=== PATIENT | male | born 1950 | race Caucasian/White ===

== ENCOUNTER 2018-09-05 08:07 | Emergency (ER) | payer OTHER, MEDICARE | END 2018-09-05 10:36 | disposition home or self-care (01) | DX: [UNRECOGNIZED DIAGNOSIS CODE] ==

== ENCOUNTER 2018-09-23 04:39 | Emergency (ER) | payer OTHER ==
[2018-09-23] MEDS ORDERED: KETOROLAC 15 MG/1 ML SDV ONE (04:51)
[2018-09-23] MEDS ORDERED: NS 1,000 ML IV ONE (04:52)
[2018-09-23] MEDS ORDERED: KETOROLAC 15 MG/1 ML SDV IVP ONE (04:52)
--- NOTE | 2018-09-23 04:54 | EDPHY ---
H & P Stated Complaint: right flank pain, lithotrypssy 09/21/18 Time Seen by Provider: 09/23/18 04:46 HPI/ROS: Chief Complaint: Right flank pain HPI: 68-year-old male presenting with right flank pain which began at 9:00 a.m. Last night. Patient has a history of a 9 mm right proximal kidney stone. He had lithotripsy performed 2 days ago [facility]. He did for well for the 1st 24 hr and pain began last night. Pain is a 9/10. He is also having some hematuria. No fevers or chills. Some nausea. No vomiting. No diarrhea or constipation. ROS: 10 systems were reviewed and were negative except those elements noted in the HPI. PMH: Renal calculi Social History: No smoking, no alcohol, no recreational drug use Family History: non-contributory Physical Exam: Gen: Awake, Alert, No Distress HEENT: Nose: no rhinorrhea Eyes: PERRLA, EOMI Mouth: Moist mucosa Neck: Supple, no JVD Chest: nontender, lungs clear to auscultation Heart: S1, S2 normal, no murmur Abd: Soft, non-tender, no guarding Back: no CVA tenderness, no midline tenderness Ext: no edema, non-tender Skin: no rash Neuro: CN II-XII intact, Sensation grossly intact, Strength 5/5 in bilateral upper and lower extremities - Personal History Current Tetanus/Diphtheria Vaccine: Yes Current Tetanus Diphtheria and Acellular Pertussis (TDAP): Yes - Medical/Surgical History Hx Asthma: No Hx Chronic Respiratory Disease: No Hx Diabetes: No Hx Cardiac Disease: No Hx Renal Disease: No Hx Cirrhosis: No Hx Alcoholism: No Hx HIV/AIDS: No Hx Splenectomy or Spleen Trauma: No Other PMH: gout - Social History Smoking Status: Never smoked Constitutional: Initial Vital Signs Temperature (C) 36.6 C 09/23/18 04:42 Heart Rate 58 L 09/23/18 04:42 Respiratory Rate 20 09/23/18 04:42 Blood Pressure 143/90 H 09/23/18 04:42 O2 Sat (%) 96 09/23/18 04:42 O2 Delivery Mode Room Air Allergies/Adverse Reactions: No Known Allergies Allergy (Verified 09/23/18 04:42) Home Medications: Medication Instructions Recorded ALLOPURINOL [Allopurinol 300 mg] 600 mg PO DAILY 06/08/11 Cephalexin [Keflex] 500 mg PO TID 10 Days cap 12/07/15 Doxycycline Hyclate 100 mg PO BID #20 capsule. 12/07/15 Ondansetron Odt [Zofran Odt 4 mg 4 mg PO Q4 PRN #10 tab 09/05/18 (RX)] Tamsulosin HCl [Flomax 0.4 MG (*)] 0.4 mg PO DAILY #10 cap 09/05/18 oxyCODONE IR [Oxycodone Ir (*)] 5 - 10 mg PO Q6 PRN #30 tab 09/05/18 Medical Decision Making ED Course/Re-evaluation: 68-year-old male 2 days status post lithotripsy with flank pain. Urinalysis shows blood but no signs of infection. Pain is resolved after Toradol. Will discharge with follow-up with his urologist. - Data Points Laboratory Results: Laboratory Results 09/23/18 04:50 09/23/18 04:50 09/23/18 09/23/18 09/23/18 05:30 04:50 04:50 WBC 10.96 10^3/uL H 10^3/uL (3.80-9.50) RBC 4.72 10^6/uL 10^6/uL (4.40-6.38) Hgb 15.4 g/dL g/dL (13.7-17.5) Hct 44.8 % % (40.0-51.0) MCV 94.9 fL fL (81.5-99.8) MCH 32.6 pg pg (27.9-34.1) MCHC 34.4 g/dL g/dL (32.4-36.7) RDW 12.6 % % (11.5-15.2) Plt Count 138 10^3/uL L 10^3/uL (150-400) MPV 11.3 fL fL (8.7-11.7) Neut % (Auto) 72.6 % % (39.3-74.2) Lymph % (Auto) 16.6 % % (15.0-45.0) [place] % (Auto) 9.4 % % (4.5-13.0) Eos % (Auto) 0.3 % L % (0.6-7.6) Baso % (Auto) 0.7 % % (0.3-1.7) Nucleat RBC Rel Count 0.0 % % (0.0-0.2) Absolute Neuts (auto) 7.96 10^3/uL H 10^3/uL (1.70-6.50) Absolute Lymphs (auto) 1.82 10^3/uL 10^3/uL (1.00-3.00) Absolute Monos (auto) 1.03 10^3/uL H 10^3/uL (0.30-0.80) Absolute Eos (auto) 0.03 10^3/uL 10^3/uL (0.03-0.40) Absolute Basos (auto) 0.08 10^3/uL 10^3/uL (0.02-0.10) Absolute Nucleated RBC 0.00 10^3/uL 10^3/uL (0-0.01) Immature Gran % 0.4 % % (0.0-1.1) Immature Gran # 0.04 10^3/uL 10^3/uL (0.00-0.10) Sodium 139 mEq/L mEq/L (135-145) Potassium 4.0 mEq/L mEq/L (3.5-5.2) Chloride 105 mEq/L mEq/L (97-110) Carbon Dioxide 22 mEq/l mEq/l (22-31) Anion Gap 12 mEq/L mEq/L (6-14) BUN 21 mg/dL mg/dL (7-23) Creatinine 1.2 mg/dL mg/dL (0.7-1.3) Estimated GFR 60 Glucose 98 mg/dL mg/dL (70-100) Calcium 9.3 mg/dL mg/dL (8.5-10.4) Urine Color YELLOW Urine Appearance MODERATELY TURBID Urine pH 5.0 (5.0-7.5) Ur Specific [place] 1.018 (1.002-1.030) Urine Protein NEGATIVE (NEGATIVE) Urine Ketones NEGATIVE (NEGATIVE) Urine Blood 3+ H (NEGATIVE) Urine Nitrate NEGATIVE (NEGATIVE) Urine Bilirubin NEGATIVE (NEGATIVE) Urine Urobilinogen NEGATIVE EU EU (0.2-1.0) Ur Leukocyte Esterase NEGATIVE (NEGATIVE) Urine RBC Pending Urine WBC Pending Ur Epithelial Cells Pending Urine Glucose NEGATIVE (NEGATIVE) Medications Given: Discontinued Medications Sodium Chloride (Ns) 1,000 mls @ 0 mls/hr IV ONCE ONE; Wide Open PRN Reason: Protocol Stop: 09/23/18 04:53 Last Admin: 09/23/18 04:57 Dose: 1,000 mls Ketorolac Tromethamine (Toradol) 15 mg IVP EDNOW ONE Stop: 09/23/18 04:53 Last Admin: 09/23/18 04:58 Dose: 15 mg Departure - Departure Disposition: Home, Routine, Self-Care Clinical Impression: Renal calculi Condition: Good Instructions: Kidney Stones (ED) Additional Instructions: Take ibuprofen, 600 mg every 8 hr. You may alternate with acetaminophen, 1000 mg every 8 hr. Follow up with urologist in 1-2 days for further evaluation. Referrals: Matteo Connolly MD [Medical Doctor] - As per Instructions
[2018-09-23 05:09] LABS: PLATELET COUNT 138 10^3/uL (150-400)
[2018-09-23 06:27] VITALS: BP 120/70
== END 2018-09-23 06:27 | disposition home or self-care (01) ==
DX: N20.0 Calculus of kidney (principal); E86.9 Volume depletion, unspecified
CPT/HCPCS: 74018; 96361; 96374; 99284; J1885

== ENCOUNTER → 2018-10-02 | Outpatient (CLI) | payer OTHER | LOC: BMCIMAGING 10:29 | PROVIDERS: ATTEND Urology | DX: Z09 Encounter for follow-up examination after completed treatment for conditions other than malignant neoplasm (principal); R93.421 Abnormal radiologic findings on diagnostic imaging of right kidney; R93.41 Abnormal radiologic findings on diagnostic imaging of renal pelvis, ureter, or bladder ==

== ENCOUNTER → 2018-10-30 | Outpatient (CLI) | payer OTHER | LOC: BMCIMAGING 14:55 | PROVIDERS: ATTEND Urology | DX: N20.0 Calculus of kidney (principal) ==

== ENCOUNTER → 2018-11-27 | Outpatient (CLI) | payer OTHER | LOC: BMCIMAGING 09:24 | PROVIDERS: ATTEND Urology | DX: N20.0 Calculus of kidney (principal) ==